=== PATIENT | male | born 1975 | race Two or more races ===

== ENCOUNTER 2019-07-16 00:22 | Emergency (ER) | payer OTHER ==
--- NOTE | 2019-07-16 02:15 | ED ---
Psych HPI - General Chief Complaint: Psychiatric Symptoms Stated Complaint: mental health Time Seen by Provider: 07/16/19 00:39 Source: patient Mode of arrival: EMS - History of Present Illness Initial Comments: This patient is a 44-year-old man who presents to be evaluated for fatigue and depression. The patient relates he does have history of depression had previously been treated but has not had medication for nearly 2 years now. Patient however has been feeling like he may need to resume treatment for depression. He does note that he works as a power truck driver and is from [place] but is in [place] for a few days. He states he has not slept well for about 3 days and is very fatigued. The patient is denying suicidal ideation. No auditory hallucinations. MD Complaint: feels depressed -: week(s) Associated Psychiatric Symptoms: depression History of same: Yes Quality: getting worse Improves With: none Worsens With: none Context: not taking psychiatric medications Associated Symptoms: denies other symptoms Review of Systems ROS Statement: Those systems with pertinent positive or pertinent negative responses have been documented in the HPI. ROS Other: All systems not noted in ROS Statement are negative. Constitutional: Denies: fever Eyes: Denies: vision change Respiratory: Denies: cough, dyspnea Cardiovascular: Denies: chest pain, palpitations Gastrointestinal: Denies: abdominal pain, vomiting, diarrhea Genitourinary: Denies: dysuria, hematuria Musculoskeletal: Denies: back pain Skin: Denies: rash Neurological: Denies: headache Psychiatric: Reports: depression. Denies: auditory hallucinations, homicidal thoughts, suicidal thoughts Past Medical History History of Any Multi-Drug Resistant Organisms: None Reported Past Psychological History: Anxiety, Depression, PTSD Smoking Status: Current every day smoker General Exam General appearance: alert, in no apparent distress Head exam: Present: atraumatic, normocephalic Eye exam: Present: normal appearance. Absent: scleral icterus, conjunctival injection ENT exam: Present: normal oropharynx Respiratory exam: Present: normal lung sounds bilaterally. Absent: respiratory distress, wheezes, rales, rhonchi, stridor Cardiovascular Exam: Present: regular rate, normal rhythm, normal heart sounds. Absent: systolic murmur, diastolic murmur, rubs, gallop GI/Abdominal exam: Present: soft. Absent: distended, tenderness, guarding, rebound, rigid Extremities exam: Present: normal inspection, normal capillary refill. Absent: pedal edema, calf tenderness Back exam: Present: normal inspection. Absent: CVA tenderness (R), CVA tenderness (L) Neurological exam: Present: alert, oriented X3 Psychiatric exam: Present: normal affect, normal mood. Absent: agitated, anxious, flat affect, manic, homicidal ideation, suicidal ideation Skin exam: Present: warm, dry, intact, normal color. Absent: rash Course Vital Signs 07/16/19 00:33 Temperature 98.0 F Pulse Rate 100 Respiratory 19 Rate Blood Pressure 127/115 O2 Sat by Pulse 97 Oximetry Disposition Clinical Impression: Mood disorder Disposition: HOME SELF-CARE Condition: Fair Instructions (If sedation given, give patient instructions): Mood Disorders (ED) Is patient prescribed a controlled substance at d/c from ED?: No Referrals: Nonstaff,Physician [Primary Care Provider] - 1-2 days
[2019-07-16 05:07] VITALS: BP 111/70; PULSE 84; RESP 16; TEMP 98.2
== END 2019-07-16 05:12 | disposition home or self-care (01) ==
LOC: EC 00:22
DX: F39 Unspecified mood [affective] disorder (principal); F17.200 Nicotine dependence, unspecified, uncomplicated
CPT/HCPCS: 82075; 99284

== ENCOUNTER 2019-07-16 19:16 | Inpatient (IN) | payer OTHER ==
--- NOTE | 2019-07-16 19:54 | ED ---
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 Patient has a history of PTSD. He is originally from [facility]. His brother contacted the hospital and stated that he's been staying in his truck for the past 3 days and scared to leave. He has apparently been off of Abilify 5 mg for the past 2 and half months due to covid and being a experienced truck driver and not seeing his regular physician. Patient reportedly was seeing the devil when he arrived in room 14, and was moved to 12 and has since been cooperative. Patient's brother reports that he occasionally has to be admitted for re-bouncing on his medications. Patient denies any suicidal ideations at this time. Review of Systems ROS Statement: Those systems with pertinent positive or pertinent negative responses have been documented in the HPI. ROS Other: All systems not noted in ROS Statement are negative. Past Medical History Past Medical History: No Reported History Additional Past Medical History / Comment(s): broke right arm. History of Any Multi-Drug Resistant Organisms: None Reported Past Surgical History: Tonsillectomy Past Psychological History: Anxiety, Depression, PTSD Smoking Status: Current every day smoker Past Alcohol Use History: None Reported Past Drug Use History: None Reported General Exam - General Exam Comments Initial Comments: This is a 44-year-old male. Alert and oriented 3. Patient appears in no acute distress. Limitations: no limitations General appearance: alert, in no apparent distress Head exam: Present: atraumatic, normocephalic, normal inspection Eye exam: Present: normal appearance, PERRL, EOMI. Absent: scleral icterus, conjunctival injection, periorbital swelling ENT exam: Present: normal exam, mucous membranes moist Neck exam: Present: normal inspection. Absent: tenderness, meningismus, lymphadenopathy Respiratory exam: Present: normal lung sounds bilaterally. Absent: respiratory distress, wheezes, rales, rhonchi, stridor Cardiovascular Exam: Present: regular rate, normal rhythm, normal heart sounds. Absent: systolic murmur, diastolic murmur, rubs, gallop, clicks GI/Abdominal exam: Present: soft, normal bowel sounds. Absent: distended, tenderness, guarding, rebound, rigid Extremities exam: Present: normal inspection, full ROM, normal capillary refill. Absent: tenderness, pedal edema, joint swelling, calf tenderness Back exam: Present: normal inspection Neurological exam: Present: alert, oriented X3, CN II-XII intact Psychiatric exam: Present: other (Patient has a flat affect. Reported seeing the devil in another room. ). Absent: normal affect, normal mood Skin exam: Present: warm, dry, intact, normal color. Absent: rash Course Vital Signs 07/16/19 07/16/19 19:26 20:09 Temperature 100 F H 99.7 F H Pulse Rate 100 99 Respiratory 18 17 Rate Blood Pressure 150/110 149/90 O2 Sat by Pulse 98 98 Oximetry Medical Decision Making - Medical Decision Making Patient's a 44-year-old male presents emergency department today with abnormal behavior. Concern for schizophrenia and Patient seemed somewhat catatonic in staring off in space and responding to internal stimuli. 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 He reported to nursing staff that he was seeing double. Patient has been cooperative in exam room. Patient will be admitted to EPS at this time after their evaluation. - Lab Data Result diagrams: 07/16/19 21:08 Lab Results 07/16/19 Range/Units 21:08 WBC 11.4 H (3.8-10.6) k/uL RBC 5.57 (4.30-5.90) m/uL Hgb 17.8 H (13.0-17.5) gm/dL Hct 53.2 H (39.0-53.0) % MCV 95.4 (80.0-100.0) fL MCH 32.0 (25.0-35.0) pg MCHC 33.6 (31.0-37.0) g/dL RDW 12.2 (11.5-15.5) % Plt Count 271 (150-450) k/uL Neutrophils % 75 % Lymphocytes % 17 % Monocytes % 5 % Eosinophils % 1 % Basophils % 1 % Neutrophils # 8.6 H (1.3-7.7) k/uL Lymphocytes # 1.9 (1.0-4.8) k/uL Monocytes # 0.6 (0-1.0) k/uL Eosinophils # 0.2 (0-0.7) k/uL Basophils # 0.1 (0-0.2) k/uL Disposition Clinical Impression: Mood disorder, Acute psychosis [facility] Condition: Stable Is patient prescribed a controlled substance at d/c from ED?: No Time of Disposition: 21:46
[2019-07-16 21:17] LABS: Basophils # (A) 0.1 k/uL (0-0.2); Basophils % (A) 1 %; Eosinophils # (A) 0.2 k/uL (0-0.7); Eosinophils % (A) 1 %; HCT 53.2 % (39.0-53.0); HGB 17.8 gm/dL (13.0-17.5); Lymphocytes # (A) 1.9 k/uL (1.0-4.8); Lymphocytes % (A) 17 %; MCHC 33.6 g/dL (31.0-37.0); MCV 95.4 fL (80.0-100.0); Monocytes # (A) 0.6 k/uL (0-1.0); Monocytes % (A) 5 %; Neutrophils # (A) 8.6 k/uL (1.3-7.7); Neutrophils % (A) 75 %; Platelet Count 271 k/uL (150-450); RBC 5.57 m/uL (4.30-5.90); RDW 12.2 % (11.5-15.5); WBC 11.4 k/uL (3.8-10.6)
[2019-07-16 21:36] LABS: African American GFR (CKD) >90 (>60 ml/min/1.73 sqM); Anion Gap 11 mmol/L; Blood Urea Nitrogen 15 mg/dL (9-20); Calcium 9.8 mg/dL (8.4-10.2); Carbon Dioxide 24 mmol/L (22-30); Chloride 102 mmol/L (98-107); Glucose 156 mg/dL (74-99); Non-African American GFR(CKD) >90 (>60 ml/min/1.73 sqM); Sodium 137 mmol/L (137-145)
[2019-07-16 21:55] LABS: Potassium 3.4 mmol/L (3.5-5.1)
[2019-07-16 22:05] LABS: Amorphous Sediment,Urine Rare /hpf; Appearance,Urine Clear (Clear); Bilirubin,Urine Negative (Negative); Blood,Urine Negative (Negative); Color,Urine Yellow; Glucose,Urine (UA) Negative (Negative); Ketones,Urine Trace (Negative); Leukocyte Esterase,Urine Trace (Negative); Mucus,Urine Moderate /hpf; Nitrite,Urine Negative (Negative); Protein,Urine Negative (Negative); Specific Gravity,Urine 1.016 (1.001-1.035); Squamous Epithelial Cell,Urine <1 /hpf (0-4); WBC,Urine 3 /hpf (0-5)
[2019-07-16] MEDS ORDERED: ZIPRASIDONE 20 MG VIAL IM PRN (22:16)
[2019-07-16] MEDS ORDERED: MAGNESIUM HYDROXIDE 2,400 MG/10 ML CUP PO PRN (22:16)
[2019-07-16] MEDS ORDERED: LORazepam 1 MG TAB PO PRN (22:16)
[2019-07-16] MEDS ORDERED: MAG HYDROX/AL HYDROX/SIMETH 30 ML CUP PO PRN (22:16)
[2019-07-16] MEDS ORDERED: ACETAMINOPHEN TAB 325 MG TAB PO PRN (22:16)
[2019-07-16] MEDS ORDERED: LORazepam 2 MG/ML INJ IM PRN (22:22)
[2019-07-16 22:23] LABS: Amphetamine Screen,Urine Not Detected (NotDetected); Barbiturate Screen,Urine Not Detected (NotDetected); Benzodiazepines Screen,Urine Not Detected (NotDetected); Cocaine Screen,Urine Not Detected (NotDetected); Methadone Screen, Urine Not Detected (NotDetected); Opiate Screen,Urine Not Detected (NotDetected); Oxycodone Screen, Urine Not Detected (NotDetected); Phencyclidine Screen,Urine Not Detected (NotDetected); Tricyclic Antidepressant,Urine Not Detected (NotDetected); Urn Cannabinoid Scrn Not Detected (NotDetected)
[2019-07-16 23:43] VITALS: RESP 16
--- NOTE | 2019-07-17 00:23 | P.MDCNMH ---
History of Present Illness H&P Date: 07/16/19 Chief Complaint: medical evaluation 44 year old male with history of mental health issues, that he did not tell what exactly , and that he was on medications that he stopped few months ago as he did not find benefit from them patient works as a lease purchase truck driver, and he has been having some issues that he was not comfortable to share with me , he is denying any medical concerns at this time from reviewing his ER records. it seems like he has some sort of schizophrenia, with visual hallucinations. his brother reported that he has been living in his truck for over 3 days , and too scared to leave it. he has stopped Abilify 3 months ago due to difficulty in following up with his doctor. when patient arrived to the ED, he claimed that he was seeing the devil and he looked very scared. patient is from [facility] and has PTSD. patient was not talking to me Review of Systems ROS unobtainable: due to mental status Past Medical History Past Medical History: No Reported History Additional Past Medical History / Comment(s): broke right arm. History of Any Multi-Drug Resistant Organisms: None Reported Past Surgical History: Tonsillectomy Past Psychological History: Anxiety, Depression, PTSD Smoking Status: Current every day smoker Past Alcohol Use History: None Reported Past Drug Use History: None Reported - Past Family History family Family Medical History: Unable to Obtain Medications and Allergies Home Medications Medication Instructions Recorded Confirmed Type ARIPiprazole [Abilify] 5 mg PO DAILY 07/16/19 07/16/19 History Allergies Allergy/AdvReac Type Severity Reaction Status Date / Time No Known Allergies Allergy Verified 07/16/19 21:51 Physical Exam Vitals: Vital Signs Temp Pulse Resp BP Pulse Ox 07/16/19 20:09 99.7 F H 99 17 149/90 98 07/16/19 19:26 100 F H 100 18 150/110 98 Intake and Output 07/16/19 07/16/19 07/17/19 14:59 22:59 06:59 Other: Weight 76.204 kg limited exam Constitutional: patient is sweaty , looks scared, claimed that he has mental issues that he did not want to share Eyes: Anicteric sclerae, moist conjunctiva, Pupils equal round reactive to light ENMT: NC/AT Neck: Supple, FROM, Lungs: Clear to auscultation Clear to percussion Normal respiratory effort, no accessory muscle use Cardiovascular: Heart tachycardia No murmurs, gallops, or rubs No peripheral edema Abdominal: Soft Nontender, no guarding, rebound or rigidity Skin: Normal temperature, tone, texture, turgor Extremities: No digital cyanosis No clubbing Pedal pulses intact and symmetrical Radial pulses intact and symmetrical No calf tenderness Psychiatric: Alert and oriented to person, place and time paranoid Neuro Muscles Strength 5/5 in all 4 extremities no focal sensory deficits Lymphatics: deferred Cranial Nerve Examination - Cranial Nerves Cranial Nerve II- Optic: Intact Cranial Nerve III- Oculomotor: Intact Cranial Nerve IV- Trochlear: Intact Cranial Nerve V- Trigeminal: Intact Cranial Nerve - Abducens: Intact Cranial Nerve VII- Facial: Intact Cranial Nerve VIII- Auditory: Intact Cranial Nerve IX- Glossopharyngeal: Intact Cranial Nerve X- Vagus: Intact Cranial Nerve XI- Accessory: Intact Cranial Nerve XII- Hypoglossal: Intact Results CBC & Chem 7: 07/16/19 21:08 07/16/19 21:08 Labs: Abnormal Lab Results - Last 24 Hours (Table) 07/16/19 07/16/19 07/16/19 Range/Units 21:08 21:08 21:40 WBC 11.4 H (3.8-10.6) k/uL Hgb 17.8 H (13.0-17.5) gm/dL Hct 53.2 H (39.0-53.0) % Neutrophils # 8.6 H (1.3-7.7) k/uL Potassium 3.4 L (3.5-5.1) mmol/L Glucose 156 H (74-99) mg/dL Urine Ketones Trace H (Negative) Ur Leukocyte Esterase Trace H (Negative) Amorphous Sediment Rare H (None) /hpf Urine Mucus Moderate H (None) /hpf Assessment and Plan Assessment: 44 year old male with history of mental health issues , suspected to be achizophrenia , comes in due to feeling very scared, and possibly having visual hallucinations. currently denies any medical complaints. acute psychosis schizophrenia management per psych polycythemia , possibly secondary to smoking OP follow up tobacco smoking, nicotine replacement therapy patient counseled to quit smoking low risk for DVT, patient is ambulatory Thank you for allowing us to participate in the care of this patient. We will follow peripherally. Do not hesitate to contact us with questions. Someone can be reached from the [facility] hospitalist group at all hours of the day at [phone].
[2019-07-17 08:58] LABS: ALT 28 U/L (4-49); AST 25 U/L (17-59); African American GFR (CKD) >90 (>60 ml/min/1.73 sqM); Alkaline Phosphatase 64 U/L (38-126); Anion Gap 7 mmol/L; Blood Urea Nitrogen 11 mg/dL (9-20); Calcium 9.5 mg/dL (8.4-10.2); Carbon Dioxide 25 mmol/L (22-30); Chloride 106 mmol/L (98-107); Cholesterol 166 mg/dL (<200); Glucose 109 mg/dL (74-99); HDL Cholesterol 52 mg/dL (40-60); LDL Cholesterol,Calculated 100 mg/dL (0-99); Non-African American GFR(CKD) 90 (>60 ml/min/1.73 sqM); Potassium 4.1 mmol/L (3.5-5.1); Sodium 138 mmol/L (137-145); Total Bilirubin 0.9 mg/dL (0.2-1.3); Total Protein 6.3 g/dL (6.3-8.2); Triglycerides 68 mg/dL (<150)
[2019-07-17] MEDS: ARIPiprazole 5 MG TAB PO SCH (09:26)
--- NOTE | 2019-07-17 13:17 | P.HP ---
Psychiatric H&P - . H&P Date: 07/17/19 History & Physical: IDENTIFYING DATA: He is a 44-year-old single [place] born male who presented to the psychiatric unit voluntarily. HISTORY OF PRESENT ILLNESS: He presented to the ED twice this week. The first time was on July 15 when he complained of depression, hallucinations and not taken his medicine for the last 2 years. He told the EPS nurse that he [place] a truck [place] and has not slept or eaten "in a few days". He came to the hospital reportedly to "get some sleep." He returned to the hospital the next day and complained of having "illogical thoughts." He told the EPS nurse that he was seeing "ghosts" in his truck was "possessed". During the EPS assessment he had difficulty concentrating and attending and appeared to be responding to internal stimuli. He refused to enter exam room 14 in the ED. He told the EPS nurse that the devil told him he would be "bad" if he entered exam 14. Nurse spoke with his brother, Todd, who stated he has history of mental illness as been diagnosed with schizophrenia, PTSD and depression. The patient provided little information during our interview. At times he scanned the room as though he were responding to internal stimuli. He was internally preoccupied. When I asked the reason for hospitalization he replied that he wasn't feeling well. His answers to questions were terse and cryptic. He was guarded and appeared distressed if I ask questions further collaborate his answers. He talked about feeling possessed and receiving messages from God and the devil. When I asked about auditory hallucinations he became tense, stared intensely at the wall and began to clench and unclench his fist. In response to questions about thought disturbances he replied to the affirmative. He feels that his thoughts are controlled by God and the devil. He described feelings of depression but denied thoughts of or suicide. He admitted to past histories of severe depression uncomplicated by suicidality. He feels tense and anxious but denied persistent anxiety that he is unable to control. He did not describe obsessions or compulsions. He denied experiencing periods of elevated mood or sustained irritability suggestive of rodger or hypomania. He denied use of alcohol or other drugs to get high, help him sleep or changes mood. PAST PSYCHIATRIC HISTORY: This is his fifth psychiatric hospitalization. The last was in [place] in 2019. According to his brother has been treated in the past with Abilify 5 mg daily. He stated that he has met with a psychiatrist in [facility] intermittently but never follows through with treatment. "When I get better I stopped going." PAST MEDICAL HISTORY: He denied a history of major medical problems ALLERGIES: No known drug ALLERGIES SUBSTANCE USE HISTORY:. He denied a history of alcohol or drug use problems. He is never been the substance abuse treatment program. FAMILY PSYCHIATRIC/SUBSTANCE USE HISTORY: He is unaware of family history of mental illness.. LEGAL HISTORY: He denied a history of legal problems. SOCIAL HISTORY: He was born in [facility] and lived in [facility] [place] [facility] the during the civil war. He alleged that he was not a soldier but was "involved in the war." He would not talk about traumatic experiences. His family immigrated to [facility] in 1990. He is single and has one child out of wedlock who lives with her mother in [facility]. His parents live in [facility]. He has 1 brother who lives in [place]. MENTAL STATUS EXAM: He presented as a casually groomed male who intermittently made eye contact. He was tense and anxious. At times he had difficulty attending to the interview and appeared to be responding to internal stimuli. He had no distinction features are prominent physical abnormalities. He had a anxious facial expression. He was alert and oriented to person, place and time. He had psychomotor retardation but no abnormal involuntary movements. Speech was not spontaneous and had decreased rate and rhythm. His affect was tense and guarded. He denied suicidal ideation and wishes. He denied homicidal ideation. He did not express such depressive cognitions as hopelessness, helplessness or worthlessness. He did not express ideas reference. He had paranoid ideation and vague paranoid delusional beliefs involving God and the differential. His thinking was concrete but his associations were coherent. He would not talk about hallucinatory experiences but clearly appeared to be responding to internal stimuli. Global impression of intellect is average. He is aware of his illness and need for treatment. STRENGTHS: Good physical health, stable income, supportive family WEAKNESSES: Poor compliance with psychiatric treatment, chronic psychiatric illness IMPRESSION: He has a 44-year-old single male who presented to the psychiatric unit voluntarily with a history of paranoia, paranoid delusional beliefs and auditory hallucinations. He has history of psychiatric illness, several hospitalizations and erratic compliance with outpatient psychiatric treatment. The prominence of psychotic symptoms suggestive of a primary psychotic illness such as schizophrenia or schizoaffective disorder. He may have posttraumatic symptoms as a result of experiences during these [facility] [place]. He should be treated inpatient basis with combination of psychopharmacology and multimodal therapy. PRINCIPLE DIAGNOSIS: Schizoaffective disorder depressed type features, rule out schizophrenia, rule out major depressive disorder with psychotic features, post manic stress disorder RECOMMENDATION: Admitted to the psychiatric unit. Safety precautions. Consult medicine for initial physical exam and medical history. vineyard worker completed initial psychosocial assessment to coordinate discharge and aftercare services. Begin Abilify 5 mg daily and titrated according to clinical response tolerance. Obtain collateral information from family. Encourage participation in therapeutic groups and activities. Evaluate clinical status response to treatment daily basis. Allergies Allergy/AdvReac Type Severity Reaction Status Date / Time No Known Allergies Allergy Verified 07/16/19 21:51 Vital Signs Temp 97.6 F 07/17/19 00:50 Pulse 96 07/17/19 00:50 Resp 16 07/17/19 00:50 BP 146/95 07/17/19 00:50 Pulse Ox 96 07/16/19 23:29 Intake & Output 07/16/19 07/17/19 07/17/19 18:59 06:59 18:59 Weight 76.204 kg Laboratory Last Values WBC 11.4 k/uL (3.8-10.6) H 07/16/19 21:08 RBC 5.57 m/uL (4.30-5.90) 07/16/19 21:08 Hgb 17.8 gm/dL (13.0-17.5) H 07/16/19 21:08 Hct 53.2 % (39.0-53.0) H 07/16/19 21:08 MCV 95.4 fL (80.0-100.0) 07/16/19 21:08 MCH 32.0 pg (25.0-35.0) 07/16/19 21:08 MCHC 33.6 g/dL (31.0-37.0) 07/16/19 21:08 RDW 12.2 % (11.5-15.5) 07/16/19 21:08 Plt Count 271 k/uL (150-450) 07/16/19 21:08 Neutrophils % 75 % 07/16/19 21:08 Lymphocytes % 17 % 07/16/19 21:08 Monocytes % 5 % 07/16/19 21:08 Eosinophils % 1 % 07/16/19 21:08 Basophils % 1 % 07/16/19 21:08 Neutrophils # 8.6 k/uL (1.3-7.7) H 07/16/19 21:08 Lymphocytes # 1.9 k/uL (1.0-4.8) 07/16/19 21:08 Monocytes # 0.6 k/uL (0-1.0) 07/16/19 21:08 Eosinophils # 0.2 k/uL (0-0.7) 07/16/19 21:08 Basophils # 0.1 k/uL (0-0.2) 07/16/19 21:08 Sodium 138 mmol/L (137-145) 07/17/19 08:12 Potassium 4.1 mmol/L (3.5-5.1) 07/17/19 08:12 Chloride 106 mmol/L (98-107) 07/17/19 08:12 Carbon Dioxide 25 mmol/L (22-30) 07/17/19 08:12 Anion Gap 7 mmol/L 07/17/19 08:12 BUN 11 mg/dL (9-20) 07/17/19 08:12 Creatinine 1.00 mg/dL (0.66-1.25) 07/17/19 08:12 Est GFR (CKD-EPI)AfAm >90 (>60 ml/min/1.73 sqM) 07/17/19 08:12 Est GFR (CKD-EPI)NonAf 90 (>60 ml/min/1.73 sqM) 07/17/19 08:12 Glucose 109 mg/dL (74-99) H 07/17/19 08:12 Calcium 9.5 mg/dL (8.4-10.2) 07/17/19 08:12 Total Bilirubin 0.9 mg/dL (0.2-1.3) 07/17/19 08:12 AST 25 U/L (17-59) 07/17/19 08:12 ALT 28 U/L (4-49) 07/17/19 08:12 Alkaline Phosphatase 64 U/L (38-126) 07/17/19 08:12 Total Protein 6.3 g/dL (6.3-8.2) 07/17/19 08:12 Albumin 4.0 g/dL (3.5-5.0) 07/17/19 08:12 Triglycerides 68 mg/dL (<150) 07/17/19 08:12 Cholesterol 166 mg/dL (<200) 07/17/19 08:12 LDL Cholesterol, Calc 100 mg/dL (0-99) H 07/17/19 08:12 HDL Cholesterol 52 mg/dL (40-60) 07/17/19 08:12 Urine Color Yellow 07/16/19 21:40 Urine Appearance Clear (Clear) 07/16/19 21:40 Urine pH 6.0 (5.0-8.0) 07/16/19 21:40 Ur Specific Fluker 1.016 (1.001-1.035) 07/16/19 21:40 Urine Protein Negative (Negative) 07/16/19 21:40 Urine Glucose (UA) Negative (Negative) 07/16/19 21:40 Urine Ketones Trace (Negative) H 07/16/19 21:40 Urine Blood Negative (Negative) 07/16/19 21:40 Urine Nitrite Negative (Negative) 07/16/19 21:40 Urine Bilirubin Negative (Negative) 07/16/19 21:40 Urine Urobilinogen 3.0 mg/dL (<2.0) 07/16/19 21:40 Ur Leukocyte Esterase Trace (Negative) H 07/16/19 21:40 Urine WBC 3 /hpf (0-5) 07/16/19 21:40 Ur Squamous Epith Cells <1 /hpf (0-4) 07/16/19 21:40 Amorphous Sediment Rare /hpf (None) H 07/16/19 21:40 Urine Mucus Moderate /hpf (None) H 07/16/19 21:40 Urine Opiates Screen Not Detected (NotDetected) 07/16/19 21:40 Ur Oxycodone Screen Not Detected (NotDetected) 07/16/19 21:40 Urine Methadone Screen Not Detected (NotDetected) 07/16/19 21:40 Ur Propoxyphene Screen Not Detected (NotDetected) 07/16/19 21:40 Ur Barbiturates Screen Not Detected (NotDetected) 07/16/19 21:40 U Tricyclic Antidepress Not Detected (NotDetected) 07/16/19 21:40 Ur Phencyclidine Scrn Not Detected (NotDetected) 07/16/19 21:40 Ur Amphetamines Screen Not Detected (NotDetected) 07/16/19 21:40 U Methamphetamines Scrn Not Detected (NotDetected) 07/16/19 21:40 U Benzodiazepines Scrn Not Detected (NotDetected) 07/16/19 21:40 Urine Cocaine Screen Not Detected (NotDetected) 07/16/19 21:40 U Marijuana (THC) Screen Not Detected (NotDetected) 07/16/19 21:40 07/17/19 09:06 07/17/19 13:11
[2019-07-17 19:03] LABS: Hemoglobin A1C 5.3 % (4.0-6.0)
[2019-07-18 06:57] VITALS: BP 131/66; PULSE 64
[2019-07-18] MEDS: ARIPiprazole 5 MG TAB PO SCH (08:24)
--- NOTE | 2019-07-18 14:14 | P.DS ---
Providers Date of admission: 07/16/19 21:40 Attending physician: Ranjeet Garcia MD Consults: 07/16/19 22:16 Consult Physician Routine Consulting Provider: [facility] Consult Reason/Comments: H&P and medical Do you want consulting provider notified?: Yes Primary care physician: Physician Nonstaff - Discharge Diagnosis(es) (1) Acute psychosis Current Visit: Yes Status: Resolved Priority: Medium Hospital Course: He is a 44-year-old single [place] born male who presented to the psychiatric unit voluntarily. He presented to the ED twice this week. The first time was on July 15 when he complained of depression, hallucinations and not taken his medicine for the last 2 years. He told the EPS nurse that he [place] a truck [place] and has not slept or eaten "in a few days". He came to the hospital reportedly to "get some sleep." He returned to the ospital the next day and complained of having "illogical thoughts." He told the EPS nurse that he was seeing "ghosts" in his truck was "possessed". During the EPS assessment he had difficulty concentrating and attending and appeared to be responding to internal stimuli. He refused to enter exam room 14 in the ED. He told the EPS nurse that the devil told him he would be "bad" if he entered exam 14. Nurse spoke with his brother, Todd, who stated he has history of mental illness as been diagnosed with schizophrenia, PTSD and depression. The patient provided little information during our interview. At times he scanned the room as though he were responding to internal stimuli. He was internally preoccupied. When I asked the reason for hospitalization he replied that he wasn't feeling well. His answers to questions were terse and cryptic. He was guarded and appeared distressed if I ask questions further collaborate his answers. He talked about feeling possessed and receiving messages from God and the devil. When I asked about auditory hallucinations he became tense, stared intensely at the wall and began to clench and unclench his fist. In response to questions about thought disturbances he replied to the affirmative. He feels that his thoughts are controlled by God and the devil. He described feelings of depression but denied thoughts of or suicide. He admitted to past histories of severe depression uncomplicated by suicidality. He feels tense and anxious but denied persistent anxiety that he is unable to control. He did not describe obsessions or compulsions. He denied experiencing periods of elevated mood or sustained irritability suggestive of rodger or hypomania. He denied use of alcohol or other drugs to get high, help him sleep or changes mood. This is his fifth psychiatric hospitalization. The last was in [place] in 2019. According to his brother has been treated in the past with Abilify 5 mg daily. He stated that he has met with a psychiatrist in [place] intermittently but never follows through with treatment. "When I get better I stopped going." We admitted him to the psychiatric unit under care of this travel writer. Provided a comprehensive biopsychosocial assessment. 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 The [employer] consultant recommended tobacco cessation and nicotine replacement during this hospitalization. We restarted Abilify 5 mg by mouth daily. The patient posed no management problem and had no episodes of behavioral dyscontrol. The second day of admission He showed a marked improvement. He had a bright affect and denied problems or concerns. When asked specifically about hallucinations or his preoccupation with God and the devil he replies that he "gets that way" when he doesn't take Abilify. He requested to be discharged and requested a prescription for Abilify. He presented as a casually groomed 38-year-old balding male who was pleasant on approach. He made eye contact and attended the interview. He had no distinguishing features or prominent physical abnormalities. He had a bright facial expression. He was alert and oriented to person, place and time. He showed no abnormality of psychomotor activity. His speech was spontaneous with normal rate and rhythm. His affect was bright, stable and appropriate. He denied suicidal ideation and wishes. He denied homicidal ideation. Denied feeling hopeless, helpless or worthless. He did not express ideas reference, paranoid ideation or delusions. His thinking was concrete but his associations were coherent and logical. He denied hallucinations and did not appear to be responding to internal stimuli. Patient Condition at Discharge: Stable Plan - Discharge Summary New Discharge Prescriptions: Continue ARIPiprazole [Abilify] 5 mg PO DAILY #30 tab Discharge Medication List ARIPiprazole [Abilify] 5 mg PO DAILY #30 tab 07/18/19 [Rx] Follow up Appointment(s)/Referral(s): intake,intake [Other] - 1 Week [facility] [NON-STAFF] - 1 Week Patient Instructions/Handouts: Mood Disorders (DC), Schizoaffective Disorder (DC) Activity/Diet/Wound Care/Special Instructions: Activity and diet as tolerated. Avoid the use of street drugs and alcohol. Take all medications as prescribed. When you are in need of refills on your medications please contact your medical provider and/or outpatient psychiatrist to have this done. Please go to scheduled outpatient appointment for aftercare treatment. If symptoms return or become worse, call the crisis line at and/or go to the nearest emergency room for evaluation. Discharge Disposition: HOME SELF-CARE
[2019-07-18 14:22] VITALS: TEMP 98.5
== END 2019-07-18 14:48 | disposition home or self-care (01) | DRG 885 ==
LOC: EC 19:16 → 3MHU 21:40
PROVIDERS: ADMIT Psychiatry & Neurology Psychiatry; ATTEND Psychiatry & Neurology Psychiatry
DX: F25.1 Schizoaffective disorder, depressive type (principal); F22 Delusional disorders; F43.10 Post-traumatic stress disorder, unspecified; F41.9 Anxiety disorder, unspecified; F17.200 Nicotine dependence, unspecified, uncomplicated; H53.2 Diplopia; D75.1 Secondary polycythemia; Z71.6 Tobacco abuse counseling; Z79.899 Other long term (current) drug therapy; Z98.890 Other specified postprocedural states
CPT/HCPCS: 36415; 80048; 80053; 80061; 80306; 81001; 82075; 83036; 84443; 85025; 99285